=== PATIENT | male | born 1950 | race Caucasian/White ===

== ENCOUNTER 2017-04-16 09:12 | Emergency (ER) | payer MEDICARE, OTHER ==
[2017-04-16 09:25] VITALS: BMI 30.4
[2017-04-16 09:27] VITALS: PULSE 69; RESP 18; TEMP 98.5; O2SAT 97
--- NOTE | 2017-04-16 11:13 | C.PDOC ---
History Of Present Illness 66 y/o male presents to ED with complaints of right shoulder pain that woke him up this morning. Patient states the pain was so severe that he "fell from his bed". Patient denies recent trauma to shoulder, lifting heavy objects, cp, sob, numbness to arm or any other complaints at this time. Patient is right hand dominant. Time Seen by Provider: 04/16/17 09:50 Chief Complaint (Nursing): Upper Extremity Problem/Injury History Per: Patient History/Exam Limitations: no limitations Onset/Duration Of Symptoms: Hrs Current Symptoms Are (Timing): Still Present Quality: "Pain" Past Medical History Reviewed: Historical Data, Nursing Documentation, Vital Signs Vital Signs: Last Vital Signs Temp 98.5 F 04/16/17 09:26 Pulse 69 04/16/17 09:26 Resp 18 04/16/17 09:26 BP 132/74 04/16/17 11:40 Pulse Ox 97 04/16/17 11:18 - Medical History PMH: Gastritis, HTN, Hypercholesterolemia, Hypothyroidism Family History: States: No Known Family Hx - Social History Hx Alcohol Use: No Hx Substance Use: No - Immunization History Hx Tetanus Toxoid Vaccination: Yes Hx Influenza Vaccination: Yes Hx Pneumococcal Vaccination: Yes Review Of Systems Except As Marked, All Systems Reviewed And Found Negative. Cardiovascular: Negative for: Chest Pain Respiratory: Negative for: Shortness of Breath Musculoskeletal: Positive for: Shoulder Pain Skin: Negative for: Rash Neurological: Negative for: Weakness, Numbness Physical Exam - Physical Exam Appears: Non-toxic, No Acute Distress Skin: Normal Color, Warm Head: Atraumatic, Normacephalic Cardiovascular: Rhythm Regular, No Murmur Respiratory: Normal Breath Sounds, No Rales, No Rhonchi, No Wheezing Extremity: Capillary Refill (<2 seconds), No Deformity, Other (Right Shoulder decreased ROM and abduction, ) Pulses: Left Brachial: Normal, Right Brachial: Normal Neurological/Psych: Oriented x3, Normal Speech, Normal Cognition, Normal Motor, Normal Sensation, Normal Reflexes ED Course And Treatment O2 Sat by Pulse Oximetry: 97 (RA) Pulse Ox Interpretation: Normal Disposition - Disposition Referrals: Antonio Herrera III, MD [Staff Provider] - Disposition: HOME/ ROUTINE Disposition Time: 11:15 Condition: GOOD Additional Instructions: Thank you for letting us take care of you today. Your provider was Dr. Saini. You were treated for shoulder pain. The emergency medical care you received today was directed at your acute symptoms. If you were prescribed any medication, please fill it and take as directed. It may take several days for your symptoms to resolve. Return to the Emergency Department if your symptoms worsen, do not improve, or if you have any other problems. Please contact your doctor or call one of the physicians/clinics you have been referred to that are listed on the Patient Visit Information form that is included in your discharge packet. Bring any paperwork you were given at discharge with you along with any medications you are taking to your follow up visit. Our treatment cannot replace ongoing medical care by a primary care provider (PCP) outside of the emergency department. Thank you for allowing the [facility] team to be part of your care today. Follow up with Dr. Herrera (orthopedics) or an orthopedic doctor recommended by your primary doctor in 3-4 days for re-evaluation. Prescriptions: Cyclobenzaprine [Cyclobenzaprine HCl] 10 mg PO Q8 PRN #20 tab PRN Reason: Muscle Spasm Ibuprofen [Motrin] 600 mg PO Q6 PRN #20 tab PRN Reason: Pain, Moderate (4-7) Instructions: Shoulder Pain (ED), Arthritis (ED) - Clinical Impression Clinical Impression: Shoulder pain - Scribe Statement The provider has reviewed the documentation as recorded by the [place] All medical record entries made by the [place] were at my direction and personally dictated by me. I have reviewed the chart and agree that the record accurately reflects my personal performance of the history, physical exam, medical decision making, and the department course for this patient. I have also personally directed, reviewed, and agree with the discharge instructions and disposition.
--- NOTE | 2017-04-16 11:17 | RAD ---
PROCEDURE: Radiographs of the Right Shoulder HISTORY: ? A/C separation. r/o fx COMPARISON: No prior. FINDINGS: BONES: No fracture or dislocation JOINTS: Mild glenohumeral and moderate acromioclavicular joint arthrosis SOFT TISSUES: Normal. OTHER FINDINGS: Midline sternotomy and coronary artery bypass clips noted. IMPRESSION: No fracture or dislocation. Osteoarthrosis
[2017-04-16 11:40] VITALS: BP 132/74
== END 2017-04-16 11:42 | disposition home or self-care (01) ==
LOC: C.ER 09:12
DX: M25.511 Pain in right shoulder (principal)

== ENCOUNTER 2017-06-30 23:38 | Emergency (ER) | payer MEDICARE, OTHER ==
[2017-06-30 23:38] VITALS: BMI 30.4
--- NOTE | 2017-06-30 23:50 | C.PDOC ---
History Of Present Illness Patient presents to the ER with a complaint of SOB that has been worsening over the last few hours, associated with a nonproductive cough and congestion. Patient is currently speaking in complete sentences; denies fever, chills, nausea, or vomiting. Time Seen by Provider: 06/30/17 23:49 Chief Complaint (Nursing): Shortness Of Breath History Per: Patient History/Exam Limitations: no limitations Onset/Duration Of Symptoms: Hrs Current Symptoms Are (Timing): Still Present Initiating Event: Other (Not known) Current Respiratory Medications: None Severity: Mild Pain Scale Rating Of: 4 Associated Symptoms: Other (nonproductive cough, congestion). denies: Fever, Chills Recent travel outside of the [place]: No Past Medical History Reviewed: Historical Data, Nursing Documentation, Vital Signs Vital Signs: Last Vital Signs Temp 97.8 F 07/01/17 00:00 Pulse 122 H 07/01/17 01:52 Resp 20 07/01/17 01:52 BP 117/70 07/01/17 01:52 Pulse Ox 99 07/01/17 01:52 - Medical History PMH: Gastritis, HTN, Hypercholesterolemia, Hypothyroidism Surgical History: CABG Family History: States: No Known Family Hx - Social History Hx Alcohol Use: No Hx Substance Use: No - Immunization History Hx Tetanus Toxoid Vaccination: Yes Hx Influenza Vaccination: Yes Hx Pneumococcal Vaccination: Yes Review Of Systems Constitutional: Negative for: Fever, Chills Respiratory: Positive for: Cough, Shortness of Breath, Other (Congestion) Gastrointestinal: Negative for: Nausea, Vomiting Physical Exam - Physical Exam Appears: Non-toxic Skin: Warm, Dry Head: Normacephalic Oral Mucosa: Moist Chest: Other (CABG scar) Cardiovascular: Rhythm Regular Respiratory: Rales (at bases), Rhonchi (Diffuse), No Wheezing Gastrointestinal/Abdominal: Soft, No Tenderness Neurological/Psych: Oriented x3 ED Course And Treatment - Laboratory Results Result Diagrams: 07/01/17 00:01 07/01/17 00:11 ECG: Interpreted By Me, Viewed By Me ECG Rhythm: Sinus Rhythm (98), R BBB, Nonspecific Changes O2 Sat by Pulse Oximetry: 93 (Room air) Pulse Ox Interpretation: Normal - Radiology CXR: Interpreted by Me, Viewed By Me CXR Interpretation: Yes: Cardiomegaly, Other (chf, cabg). No: Infiltrates Progress Note: Blood work, EKG, CXR, and urinalysis ordered. Nebulizer treatment administered. Reevaluation Time: 02:26 Reassessment Condition: Improved Medical Decision Making Medical Decision Making: Upon provider reevaluation patient is feeling better, is medically stable, and requires no further treatment in the ED at this time. Patient will be discharged home with Rx for zithromax and albuterol . Counseling was provided and all questions were answered regarding diagnosis and need for follow up with dr olga villalobos There is agreement to discharge plan. Return if symptoms persist or worsen Disposition Counseled Patient/Family Regarding: Studies Performed, Diagnosis, Need For Followup, Rx Given - Disposition Referrals: Bing Villalobos MD [Staff Provider] - Disposition: HOME/ ROUTINE Disposition Time: 23:50 Condition: FAIR Additional Instructions: Please return if symptoms recur Prescriptions: Albuterol HFA [Ventolin HFA 90 mcg/actuation (8 g)] 2 puff IH [id number] #1 puff Azithromycin [Zithromax Tri-Lexx] 500 mg PO DAILY #3 tablet Instructions: Dyspnea (ED), Upper Respiratory Infection (ED) Forms: [employer] (Malagasy) - Clinical Impression Clinical Impression: Dyspnea, URI (upper respiratory infection) - Scribe Statement The provider has reviewed the documentation as recorded by the [place] All medical record entries made by the Scribe were at my direction and personally dictated by me. I have reviewed the chart and agree that the record accurately reflects my personal performance of the history, physical exam, medical decision making, and the department course for this patient. I have also personally directed, reviewed, and agree with the discharge instructions and disposition.
[2017-07-01] MEDS: Albuterol-Ipratrop 3 mg / 0.5 (3 ml) UD IH SCH ×3 (00:14→00:44)
[2017-07-01] MEDS ORDERED: Albuterol-Ipratrop 3 mg / 0.5 (3 ml) UD ONE ×2 (00:14→00:40)
[2017-07-01 00:18] LABS: BASO # 0.1 K/uL (0.0-0.2); BASO % 1.2 % (0.0-2.0); EOS # 0.3 K/uL (0.0-0.7); EOS % 4.9 % (0.0-4.0); HEMATOCRIT 42.6 % (35.0-51.0); LYMPH # 1.6 K/uL (1.0-4.3); MEAN CELL VOLUME 83.7 fL (80.0-94.0); MEAN CORPUSCULAR HEMOGLOBIN 27.5 pg (27.0-31.0); MEAN CORPUSCULAR HGB CONC 32.9 g/dL (33.0-37.0); MEAN PLATELET VOLUME 8.6 fL (7.2-11.7); MONO # 0.9 K/uL (0.0-0.8); MONO % 13.3 % (0.0-10.0); NRBC % 0.1 % (0.0-2.0); WHITE BLOOD COUNT 6.8 K/uL (4.8-10.8)
[2017-07-01 00:24] VITALS: TEMP 97.8
[2017-07-01 00:40] LABS: ALB/GLOB RATIO 1.4 (1.0-2.1); ALKALINE PHOSPHATASE 57 U/L (38-126); ALT/SGPT 23 U/L (21-72); AST/SGOT 43 U/L (17-59); BILIRUBIN,TOTAL 1.1 mg/dL (0.2-1.3); BLOOD UREA NITROGEN 16 mg/dL (9-20); CALCIUM 8.9 mg/dl (8.6-10.4); CARBON DIOXIDE 31 mmol/L (22-30); CHLORIDE 98 mmol/L (98-107); GFR AFRICAN-AMERICAN > 60; GLUCOSE,RANDOM 87 mg/dL (75-110); SODIUM 143 mmol/L (132-148); TOTAL PROTEIN 8.2 g/dL (6.3-8.3)
[2017-07-01 01:53] VITALS: BP 117/70; PULSE 122; RESP 20
[2017-07-01 01:56] LABS: URINE BILIRUBIN NEGATIVE (NEGATIVE); URINE BLOOD NEGATIVE (NEGATIVE); URINE COLOR Straw (YELLOW); URINE GLUCOSE (UA) NORMAL (Normal); URINE KETONE NEGATIVE (NEGATIVE); URINE LEUKOCYTE ESTERASE NEG Leu/uL (Negative); URINE PROTEIN NEGATIVE (NEGATIVE); URINE UROBILINOGEN NORMAL mg/dL (0.2-1.0); WBC URINE < 1 /hpf (0-5)
[2017-07-01 02:30] VITALS: O2SAT 93
--- NOTE | 2017-07-01 10:27 | RAD ---
PROCEDURE: CHEST RADIOGRAPH, 1 VIEW HISTORY: Shortness of breath COMPARISON: None available. FINDINGS: LUNGS: Diffuse increased interstitial lung markings suggestive for venous congestion and or interstitial infiltrate. This is most pronounced in the mid to lower lung zones. PLEURA: As above. CARDIOVASCULAR: Status post median sternotomy and CABG. Mild cardiomegaly. OSSEOUS STRUCTURES: No significant abnormalities. VISUALIZED UPPER ABDOMEN: Normal. OTHER FINDINGS: None. IMPRESSION: Diffuse increased interstitial lung markings suggestive for venous congestion and or interstitial infiltrate. This is most pronounced in the mid to lower lung zones.
== END 2017-07-01 02:46 | disposition home or self-care (01) ==
LOC: C.ER 23:38
DX: J06.9 Acute upper respiratory infection, unspecified (principal); R06.00 Dyspnea, unspecified; E03.9 Hypothyroidism, unspecified; I10 Essential (primary) hypertension; E78.00 Pure hypercholesterolemia, unspecified; Z95.1 Presence of aortocoronary bypass graft
CPT/HCPCS: 71010; 80053; 81001; 83880; 84484; 85025; 85610; 85730; 87040; 96374; 99285; J1940

== ENCOUNTER 2018-08-11 04:19 | Emergency (ER) | payer MEDICARE, OTHER ==
[2018-08-11 04:19] VITALS: BMI 30.4
--- NOTE | 2018-08-11 05:07 | C.PDOC ---
History Of Present Illness 67 y/o male presents to the ED complaining of SOB that started last night. States he felt as if he could not sleep. Also reports having a funny feeling in his chest. Now symptoms have somewhat subsided. Otherwise patient denies any pain, fever, chills, nausea, or vomiting. Speaking in full sentences on arrival. Time Seen by Provider: 08/11/18 05:07 Chief Complaint (Nursing): Shortness Of Breath History Per: Patient History/Exam Limitations: no limitations Onset/Duration Of Symptoms: Days Current Symptoms Are (Timing): Still Present Current Respiratory Medications: See Home Med List Past Medical History Reviewed: Historical Data, Nursing Documentation, Vital Signs Vital Signs: Last Vital Signs Temp 97.6 F 08/11/18 04:30 Pulse 74 08/11/18 04:30 Resp 20 08/11/18 04:30 BP 194/107 H 08/11/18 04:30 Pulse Ox 98 08/11/18 04:30 - Medical History PMH: Gastritis, HTN, Hypercholesterolemia, Hypothyroidism Surgical History: CABG Family History: States: No Known Family Hx - Social History Hx Alcohol Use: Yes Hx Substance Use: No - Immunization History Hx Tetanus Toxoid Vaccination: Yes Hx Influenza Vaccination: Yes Hx Pneumococcal Vaccination: Yes Review Of Systems Constitutional: Negative for: Fever, Chills, Sweats Eyes: Negative for: Vision Change Cardiovascular: Negative for: Chest Pain Respiratory: Positive for: Shortness of Breath Gastrointestinal: Negative for: Nausea, Vomiting Neurological: Negative for: Weakness, Dizziness Physical Exam - Physical Exam Appears: Non-toxic, No Acute Distress Skin: Warm, Dry Head: Normacephalic Eye(s): bilateral: Normal Inspection Oral Mucosa: Moist Neck: Trachea Midline, Supple Chest: Symmetrical Cardiovascular: Rhythm Regular Respiratory: No Accessory Muscle Use, No Rales, Rhonchi (scattered), No Wheezing Gastrointestinal/Abdominal: Bowel Sounds (normal), Soft, No Tenderness, No Distention Back: No CVA Tenderness Extremity: Bilateral: Atraumatic, Normal Color And Temperature Pulses: Left Dorsalis Pedis: Normal, Right Dorsalis Pedis: Normal Neurological/Psych: Oriented x3 ED Course And Treatment - Laboratory Results Result Diagrams: 08/11/18 05:22 08/11/18 05:22 ECG: Interpreted By Me, Viewed By Me ECG Rhythm: Sinus Rhythm, R BBB, Nonspecific Changes O2 Sat by Pulse Oximetry: 98 (RA) Pulse Ox Interpretation: Normal Progress Note: Blood work including cardiac enzymes and coag panel ordered. EKG, CXR, ordered and reviewed. Patient given duoneb nebulizer. Reevaluation Time: 06:56 Reassessment Condition: Improved Medical Decision Making Medical Decision Making: Upon provider reevaluation patient is feeling better, is medically stable, and requires no further treatment in the ED at this time. Patient will be discharged home with Rx for albuterol . Counseling was provided and all questions were answered regarding diagnosis and need for follow up with dr mariangel villalobos. There is a greement to discharge plan. Return if symptoms persist or worsen. Disposition Counseled Patient/Family Regarding: Studies Performed, Diagnosis, Need For Followup - Disposition Referrals: Bing Villalobos MD [Staff Provider] - Disposition: HOME/ ROUTINE Disposition Time: 05:07 Condition: IMPROVED Additional Instructions: Please return if symptoms recur Prescriptions: Albuterol HFA [Ventolin HFA 90 mcg/actuation (8 g)] 2 puff IH [id number] #1 puff Instructions: Shortness of Breath (Dyspnea) (DC) Forms: [employer] (Martiniquais) - Clinical Impression Clinical Impression: Dyspnea - Scribe Statement The provider has reviewed the documentation as recorded by the Scribe (Christy Montalvo) Provider Attestation: All medical record entries made by the Scribe were at my direction and personally dictated by me. I have reviewed the chart and agree that the record accurately reflects my personal performance of the history, physical exam, medical decision making, and the department course for this patient. I have also personally directed, reviewed, and agree with the discharge instructions and disposition.
[2018-08-11] MEDS: Albuterol-Ipratrop 3 mg / 0.5 (3 ml) UD IH SCH ×3 (05:22→05:52)
[2018-08-11] MEDS ORDERED: Albuterol-Ipratrop 3 mg / 0.5 (3 ml) UD ONE (05:23)
[2018-08-11 05:31] LABS: VENOUS BLOOD GAS PCO2 72 mmHg (40-60); VENOUS BLOOD GAS PO2 29 mm/Hg (30-55); VENOUS BLOOD PH 7.34 (7.32-7.43)
[2018-08-11 05:31] LABS: BASO # 0.1 K/uL (0.0-0.2); EOS # 0.2 K/uL (0.0-0.7); EOS % 2.7 % (0.0-4.0); HEMOGLOBIN 13.3 g/dL (12.0-18.0); LYMPH # 1.4 K/uL (1.0-4.3); LYMPH % 20.7 % (20.0-40.0); MEAN CELL VOLUME 84.9 fL (80.0-94.0); MEAN CORPUSCULAR HEMOGLOBIN 29.1 pg (27.0-31.0); MEAN CORPUSCULAR HGB CONC 34.3 g/dL (33.0-37.0); MEAN PLATELET VOLUME 7.4 fL (7.2-11.7); MONO # 0.5 K/uL (0.0-0.8); MONO % 7.1 % (0.0-10.0); NEUT # 4.6 K/uL (1.8-7.0); NEUT % 68.5 % (50.0-75.0); NRBC % 0.1 % (0.0-2.0); RBC 4.56 Mil/uL (4.40-5.90); RED CELL DISTRIBUTION WIDTH 14.8 % (11.5-14.5); WHITE BLOOD COUNT 6.7 K/uL (4.8-10.8)
[2018-08-11 05:32] LABS: INR 1.1; PROTHROMBIN TIME 11.6 SECONDS (9.7-12.2)
[2018-08-11 05:40] LABS: ALB/GLOB RATIO 1.6 (1.0-2.1); ALBUMIN 4.2 g/dL (3.5-5.0); ALT/SGPT 24 U/L (21-72); AST/SGOT 26 U/L (17-59); BLOOD UREA NITROGEN 16 mg/dL (9-20); CALCIUM 9.1 mg/dl (8.6-10.4); GFR NON-AFRICAN AMERICAN > 60
[2018-08-11 05:52] LABS: B-TYPE NATRIURETIC PEPTIDE 299 pg/mL (0-900)
[2018-08-11 06:52] LABS: VENOUS BLOOD GAS BASE EXCESS 7.6 mmol/L (0.0-2.0); VENOUS BLOOD GAS PCO2 52 mmHg (40-60); VENOUS BLOOD GAS PO2 28 mm/Hg (30-55); VENOUS BLOOD PH 7.42 (7.32-7.43)
[2018-08-11 07:20] VITALS: BP 148/78; PULSE 92; RESP 18; TEMP 98.3; O2SAT 97
--- NOTE | 2018-08-11 08:46 | RAD ---
Date of service: 08/11/2018 HISTORY: Shortness of breath COMPARISON: No prior. FINDINGS: LUNGS: Mild venous congestion. PLEURA: No significant pleural effusion identified, no pneumothorax apparent. CARDIOVASCULAR: Aortic atherosclerotic calcification present Status post median sternotomy and CABG. Tortuous ectatic aorta. Cardiomegaly. OSSEOUS STRUCTURES: No significant abnormalities. VISUALIZED UPPER ABDOMEN: Normal. OTHER FINDINGS: None. IMPRESSION: Mild venous congestion.
--- NOTE | 2018-08-14 00:05 | CARD ---
APPROVED REPORT Date of service: 08/11/2018 EKG Measurement Heart [id number] FL 150P-1 [id number] <Conclusion> Normal sinus rhythm Right bundle branch block Inferior infarct, age undetermined Abnormal ECG
== END 2018-08-11 07:20 | disposition home or self-care (01) ==
LOC: C.ER 04:19
DX: R06.00 Dyspnea, unspecified (principal)

== ENCOUNTER 2018-09-30 04:20 | Emergency (ER) | payer MEDICARE, OTHER ==
[2018-09-30 04:20] VITALS: BMI 30.4
[2018-09-30] MEDS ORDERED: Albuterol-Ipratrop 3 mg / 0.5 (3 ml) UD ONE ×2 (04:26→05:00)
[2018-09-30 04:35] VITALS: TEMP 98
[2018-09-30] MEDS ORDERED: Albuterol-Ipratrop 3 mg / 0.5 (3 ml) UD INH STA ×3 (04:37→04:38)
--- NOTE | 2018-09-30 04:40 | C.PDOC ---
History Of Present Illness 67 year old male presents to the ER with a complaint of SOB for the past few days that worsened tonight associated with cough productive of white sputum. Patient was started on antibiotics by PMD, stopped taking them yesterday. Denies chest pain. Chief Complaint (Nursing): Shortness Of Breath History Per: Patient History/Exam Limitations: no limitations Onset/Duration Of Symptoms: Days Current Symptoms Are (Timing): Still Present Current Respiratory Medications: See Home Med List Associated Symptoms: Productive Cough (White sputum). denies: Chest Pain Recent travel outside of the [place] States: No Past Medical History Reviewed: Historical Data, Nursing Documentation, Vital Signs Vital Signs: Last Vital Signs Temp 98.0 F 09/30/18 04:28 Pulse 91 H 09/30/18 04:28 Resp 19 09/30/18 04:28 BP 160/87 H 09/30/18 04:28 Pulse Ox 100 09/30/18 04:28 - Medical History PMH: Gastritis, HTN, Hypercholesterolemia, Hypothyroidism Surgical History: CABG Family History: States: Unknown Family Hx - Social History Hx Alcohol Use: Yes Hx Substance Use: No - Immunization History Hx Tetanus Toxoid Vaccination: Yes Hx Influenza Vaccination: Yes Hx Pneumococcal Vaccination: Yes Review Of Systems Constitutional: Negative for: Fever, Chills Cardiovascular: Negative for: Chest Pain, Palpitations Respiratory: Positive for: Cough, Shortness of Breath, Sputum (White) Gastrointestinal: Negative for: Nausea, Vomiting, Abdominal Pain Neurological: Negative for: Weakness, Numbness Physical Exam - Physical Exam Appears: Non-toxic, Other (Mildly dyspenic) Skin: Normal Color, Warm, Dry Head: Atraumatic, Normacephalic Eye(s): bilateral: Normal Inspection Oral Mucosa: Moist Throat: Normal, No Erythema, No Exudate Neck: Normal, Supple Chest: Symmetrical, No Tenderness Cardiovascular: Rhythm Regular Respiratory: No Rales, Rhonchi (Bilateral), Wheezing (Bilateral) Gastrointestinal/Abdominal: Soft, No Tenderness Back: No CVA Tenderness Extremity: Other (1+ pitting edema to lower extremities) Pulses: Left Dorsalis Pedis: Normal, Right Dorsalis Pedis: Normal Neurological/Psych: Oriented x3, Normal Speech ED Course And Treatment - Laboratory Results Result Diagrams: 09/30/18 04:58 09/30/18 04:58 ECG: Interpreted By Me, Viewed By Me ECG Rhythm: Sinus Rhythm, R BBB ECG Interpretation: Abnormal Interpretation Of ECG: NSR, LAD, RBBB, QS in II, III, AVF. no acute ST-T changes. aabnormal tracings. Rate From EC O2 Sat by Pulse Oximetry: 100 (room air) Pulse Ox Interpretation: Normal Progress Note: EKG, blood work, and CXR ordered. Duoneb nebulzier and solumedrol administered. On reevaluation, patient states he feels better, now with only minimal wheezes and good air entry, to be discharged home. Disposition Counseled Patient/Family Regarding: Diagnosis - Disposition Referrals: Isiah Mcmillan MD [Staff Provider] - Disposition: HOME/ ROUTINE Disposition Time: 06:39 Condition: IMPROVED Prescriptions: Albuterol/Ipratropium [Combivent Respimat] 1 puff IH Q4 #1 inhaler Methylprednisolone [Medrol Dose Pack (21 tabs)] 4 mg PO DAILY #21 mg Instructions: Asthma, Adult (DC) Forms: [employer] (Honduran) - POA Present On Arrival: None - Clinical Impression Clinical Impression: Dyspnea, Asthma - Scribe Statement The provider has reviewed the documentation as recorded by the Scribe Claude [place] All medical record entries made by the Scribe were at my direction and personally dictated by me. I have reviewed the chart and agree that the record accurately reflects my personal performance of the history, physical exam, medical decision making, and the department course for this patient. I have also personally directed, reviewed, and agree with the discharge instructions and disposition.
[2018-09-30 05:02] LABS: BASO % 0.6 % (0.0-2.0); EOS # 0.4 K/uL (0.0-0.7); EOS % 6.4 % (0.0-4.0); HEMOGLOBIN 13.4 g/dL (12.0-18.0); LYMPH # 1.2 K/uL (1.0-4.3); MEAN CELL VOLUME 86.5 fL (80.0-94.0); MEAN CORPUSCULAR HEMOGLOBIN 28.6 pg (27.0-31.0); MEAN CORPUSCULAR HGB CONC 33.1 g/dL (33.0-37.0); MEAN PLATELET VOLUME 8.1 fL (7.2-11.7); MONO # 0.6 K/uL (0.0-0.8); MONO % 8.5 % (0.0-10.0); NEUT # 4.3 K/uL (1.8-7.0); NEUT % 65.5 % (50.0-75.0); NRBC % 0.1 % (0.0-2.0); RBC 4.7 Mil/uL (4.40-5.90); RED CELL DISTRIBUTION WIDTH 14.8 % (11.5-14.5); WHITE BLOOD COUNT 6.5 K/uL (4.8-10.8)
[2018-09-30 05:25] LABS: BLOOD UREA NITROGEN 21 mg/dL (9-20); CALCIUM 8.6 mg/dl (8.6-10.4); GFR NON-AFRICAN AMERICAN > 60
[2018-09-30 05:31] LABS: ALB/GLOB RATIO 1.2 (1.0-2.1); ALBUMIN 4.4 g/dL (3.5-5.0); ALT/SGPT 25 U/L (21-72); AST/SGOT 48 U/L (17-59)
[2018-09-30 05:36] LABS: B-TYPE NATRIURETIC PEPTIDE 59.3 pg/mL (0-900)
[2018-09-30 06:46] VITALS: BP 123/78; PULSE 100; RESP 18; O2SAT 95
--- NOTE | 2018-09-30 07:56 | RAD ---
Date of service: 09/30/2018 HISTORY: SOB COMPARISON: 08/11/2018 TECHNIQUE: Chest PA and lateral FINDINGS: LUNGS: Overall bronchovascular markings appear top normal No consolidation noted PLEURA: No significant pleural effusion identified. No pneumothorax apparent. CARDIOVASCULAR: There is presence of aortic atherosclerotic calcification on x-ray. Midline sternotomy and CABG status noted Normal cardiac size. Pulmonary venous probably top-normal. OSSEOUS STRUCTURES: Thoracic spondylosis. Bilateral shoulder arthrosis VISUALIZED UPPER ABDOMEN: Normal. OTHER FINDINGS: None. IMPRESSION: No interval pathology noted. No consolidation or karthik pulmonary venous congestion noted. Pulmonary venous status probably [id number] less now than before. Currently greater inspiration is well noted
== END 2018-09-30 06:57 | disposition home or self-care (01) ==
LOC: C.ER 04:20
DX: J45.909 Unspecified asthma, uncomplicated (principal); R06.00 Dyspnea, unspecified; E03.9 Hypothyroidism, unspecified; E78.00 Pure hypercholesterolemia, unspecified; I10 Essential (primary) hypertension
CPT/HCPCS: 71046; 80053; 83880; 84484; 85025; 87040; 93005; 96374; 99285; J2930

== ENCOUNTER 2018-12-25 10:41 | Emergency (ER) | payer MEDICARE, OTHER ==
[2018-12-25 10:41] VITALS: BMI 30.4
--- NOTE | 2018-12-25 11:08 | C.PDOC ---
History Of Present Illness This is a 68 year old male with PMHx of HTN, HLD, CAD s/p CABG, COPD and hypothyroidism, who presents for shortness of breath noted at night. Patient admits to SOB at night when he is lying down flat. He states he is able to walk a few blocks without experiencing SOB. After going up 1-2 flights, he experiences SOB. He admits to bilateral lower extremity swelling, especially after consuming alcohol or lots of water. Patient was a former 1-2 PPD x 40 year smoker, quit 2013. Patient reports he snores at night, never had a previous sleep study. Denied any associated fever, chills, chest pain, nausea, vomiting, or abdominal pain. PMD: Jennie Quiles Cardio: Lizy - appointment scheduled 01/06/19 Time Seen by Provider: 12/25/18 11:04 Chief Complaint (Nursing): Shortness Of Breath History Per: Patient History/Exam Limitations: no limitations Onset/Duration Of Symptoms: Waxing/Waning, Intermittent Episodes Current Symptoms Are (Timing): Gone Exacerbating Factor(s): Laying Flat Current Respiratory Medications: Atrovent Severity: Mild Associated Symptoms: denies: Fever, Chills, Chest Pain, Leg/Calf Pain, Ankle/Leg Swelling Past Medical History Vital Signs: Last Vital Signs Temp 98 F 12/25/18 10:56 Pulse 88 12/25/18 10:56 Resp 18 12/25/18 10:56 BP 168/93 H 12/25/18 10:56 Pulse Ox 95 12/25/18 10:56 - Medical History PMH: Gastritis, HTN, Hypercholesterolemia, Hypothyroidism Surgical History: CABG Family History: States: Unknown Family Hx - Social History Hx Alcohol Use: Yes Hx Substance Use: No - Immunization History Hx Tetanus Toxoid Vaccination: Yes Hx Influenza Vaccination: Yes Hx Pneumococcal Vaccination: Yes Review Of Systems Constitutional: Negative for: Fever, Chills, Weakness, Weight loss Cardiovascular: Positive for: Orthopnea, Paroxysmal Noc. Dyspnea. Negative for: Chest Pain, Palpitations Respiratory: Negative for: Cough, Shortness of Breath, SOB with Excertion, Wheezing Gastrointestinal: Negative for: Nausea, Vomiting, Abdominal Pain Genitourinary: Negative for: Dysuria, Hematuria Musculoskeletal: Negative for: Back Pain Skin: Negative for: Rash Neurological: Negative for: Weakness, Numbness Physical Exam - Physical Exam Appears: Well, Non-toxic, No Acute Distress Skin: Normal Color, Warm, Dry Head: Atraumatic, Normacephalic Neck: Normal, Normal ROM Cardiovascular: Rhythm Regular Respiratory: Normal Breath Sounds, Decreased Breath Sounds, No Rales, No Rhonchi, No Wheezing Gastrointestinal/Abdominal: Normal Exam, Bowel Sounds, Soft, No Tenderness Back: Normal Inspection, No Paraspinal Tenderness Pulses: Left Radial: Normal, Right Radial: Normal Neurological/Psych: Oriented x3, Normal Speech, Normal Cognition, Normal Cranial Nerves ED Course And Treatment - Laboratory Results Result Diagrams: 12/25/18 12:14 12/25/18 12:14 Lab Interpretation: Normal ECG: Interpreted By Me ECG Interpretation: No Acute Changes, No Changes From Prior Interpretation Of ECG: NSR 85 BPM, RBBB noted, unchanged from prior EKG O2 Sat by Pulse Oximetry: 95 - Radiology CXR: Interpreted by Me, Viewed By Me CXR Interpretation: Yes: No Acute Disease. No: Infiltrates, Fracture Medical Decision Making Medical Decision Making: COPD vs HF vs Sleep Apnea - Decreased breath sounds noted on exam - Duonebs x 1 ordered - CXR ordered - CBC, CMP, BNP, Troponin ordered - Will reassess -- All labs WNL -- CXR no infiltrates, effusions, noted, compared to prior imaging, unchanged -- Spoke with Dr. Hipolito Quiles [phone] who agrees patient can be discharged and follow up with him and cardiology. Disposition Doctor Will See Patient In The: Office Counseled Patient/Family Regarding: Studies Performed, Diagnosis, Need For Followup - Disposition Disposition: HOME/ ROUTINE Disposition Time: 14:08 Condition: STABLE Additional Instructions: Please follow up with Dr. Jennie Quiles for further evaluation of possible sleep apnea. 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 Please take care and be well. Forms: [facility] ([employer]) - POA Present On Arrival: None - Clinical Impression Clinical Impression: COPD (chronic obstructive pulmonary disease)
[2018-12-25] MEDS ORDERED: Albuterol-Ipratrop 3 mg / 0.5 (3 ml) UD INH STA (11:28)
[2018-12-25] MEDS ORDERED: Albuterol 0.083% Inhal Sol (2.5 mg/3 mL) UD ONE (12:08)
[2018-12-25 12:19] LABS: BASO # 0.1 K/uL (0.0-0.2); BASO % 1.4 % (0.0-2.0); EOS # 0.1 K/uL (0.0-0.7); EOS % 2.5 % (0.0-4.0); HEMOGLOBIN 13.2 g/dL (12.0-18.0); LYMPH # 0.9 K/uL (1.0-4.3); LYMPH % 17.8 % (20.0-40.0); MEAN CORPUSCULAR HEMOGLOBIN 29.4 pg (27.0-31.0); MEAN CORPUSCULAR HGB CONC 33.1 g/dL (33.0-37.0); MEAN PLATELET VOLUME 8.2 fL (7.2-11.7); MONO # 0.3 K/uL (0.0-0.8); MONO % 6.1 % (0.0-10.0); NEUT # 3.7 K/uL (1.8-7.0); NEUT % 72.2 % (50.0-75.0); NRBC % 0.1 % (0.0-2.0); RBC 4.48 Mil/uL (4.40-5.90); RED CELL DISTRIBUTION WIDTH 14.4 % (11.5-14.5); WHITE BLOOD COUNT 5.1 K/uL (4.8-10.8)
[2018-12-25 12:21] LABS: MEAN CELL VOLUME 88.7 fL (80.0-94.0)
[2018-12-25 12:36] LABS: ALB/GLOB RATIO 1.7 (1.0-2.1); ALBUMIN 4.4 g/dL (3.5-5.0); ALT/SGPT 23 U/L (21-72); AST/SGOT 33 U/L (17-59); BLOOD UREA NITROGEN 16 mg/dL (9-20); CALCIUM 8.6 mg/dl (8.6-10.4); GFR NON-AFRICAN AMERICAN > 60
[2018-12-25 12:50] LABS: B-TYPE NATRIURETIC PEPTIDE 523 pg/mL (0-900)
[2018-12-25 14:25] VITALS: BP 145/84; PULSE 70; RESP 14; TEMP 98.6; O2SAT 98
--- NOTE | 2018-12-25 16:07 | RAD ---
Date of service: 12/25/2018 HISTORY: shortness of breath COMPARISON: 09/30/2018 FINDINGS: LUNGS: Lung volumes currently more shallow than before. No consolidation appreciated PLEURA: No significant pleural effusion identified, no pneumothorax apparent. CARDIOVASCULAR: There is presence of aortic atherosclerotic calcification on x-ray. Heart size probable top-normal. Unfolded ectatic thoracic aorta ascending aorta prominent but similar to 2018 is well probable top-normal pulmonary vasculature OSSEOUS STRUCTURES: Thoracic spondylosis. Midline sternotomy. Left shoulder arthrosis. Right shoulder not visualized. VISUALIZED UPPER ABDOMEN: Normal. OTHER FINDINGS: None. IMPRESSION: Shallow inspiration. Probable top-normal pulmonary vasculature given the shallow lung volumes noted no interval pathology noted.
--- NOTE | 2018-12-27 08:21 | CARD ---
APPROVED REPORT Date of service: 12/25/2018 EKG Measurement Heart [id number] <Conclusion> Normal sinus rhythm Left axis deviation Right bundle branch block Inferior infarct, age undetermined Abnormal ECG
== END 2018-12-25 14:43 | disposition home or self-care (01) ==
LOC: C.ER 10:41
DX: J44.9 Chronic obstructive pulmonary disease, unspecified (principal)